=== PATIENT | male | born 1950 | race Caucasian/White ===

== ENCOUNTER 2019-05-20 13:15 | Emergency (ER) | payer MEDICARE ==
--- NOTE | 2019-05-20 14:54 | CT ---
CT BRAIN WITHOUT CONTRAST: HISTORY: Trauma, pain in the top of the head COMPARISON: 06/17/2008. 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 No evidence of acute infarct, hemorrhage, midline shift or abnormal extra-axial fluid collections is seen. The ventricular size is appropriate and the basilar cisterns are patent. The bony calvarium is intact. The visualized paranasal sinuses and masto id air cells are well aerated. IMPRESSION: No CT evidence of acute intracranial process.
--- NOTE | 2019-05-20 15:00 | CT ---
CT Cervical Spine WO Con Indication: Trauma neck pain COMPARISON: None. FINDINGS: Fracture: None. Spinal alignment: No acute malalignment. Craniocervical junction: Within normal limits. Vertebral body heights: Maintained. Cervical spine degenerative change: Moderate cervical spondylosis. Diffuse osteopenia. Lung apices: Clear. IMPRESSION: No acute osseous abnormality.
[2019-05-20] MEDS ORDERED: Adacel (T-DAP) 0.5 ML SYRINGE ONE (15:01)
== END 2019-05-20 16:22 | disposition home or self-care (01) ==
LOC: ERS 13:15
DX: S80.811A Abrasion, right lower leg, initial encounter (principal); S50.312A Abrasion of left elbow, initial encounter; V19.9XXA Pedal cyclist (driver) (passenger) injured in unspecified traffic accident, initial encounter
CPT/HCPCS: 70450; 72125; 90471; 90715; 93005